=== PATIENT | male | born 1955 | race Caucasian/White ===

== ENCOUNTER → 2016-10-25 | Outpatient (REF) | payer BC | LOC: LAB 15:23 | PROVIDERS: ATTEND Family Medicine | DX: R97.20 Elevated prostate specific antigen [PSA] (principal); E78.2 Mixed hyperlipidemia | CPT/HCPCS: 84153 ==

== ENCOUNTER 2016-12-12 06:41 | Day surgery (SDC) | payer BC ==
[~2016-12-12] VITALS: Ht 170.2 cm; Wt 81.8 kg
[~2016-12-12 06:41] MED LIST: ACDPT PO; ASPI325T4 PO; HYDR-3754 PO; LACTATED RINGERS 1,000 ML IV SCH; SODIUM CHLORIDE FLUSH 3 ML SYR IV PRN; TRM50T PO
--- OUTSIDE RECORDS SUMMARY | 2016-12-12 06:44 | XMS REPORT | Continuity of Care Document ---
Author Author [facility] Address Unknown Phone Unavailable Allergies Active Description Code Type Severity Reaction Onset Reported/Identified Relationship to Patient Clinical Status Yes No Known Drug Allergies [id number] Drug Allergy Unknown N/ A 07/26/2013 Medications Problems Date Dx Coded Attending Type Code Diagnosis Diagnosed By 07/26/2013 HUNTER SMITH DO Ot 553.1 UMBILICAL HERNIA 07/26/2013 HUNTER SMITH DO Ot 789.05 ABDOMINAL PAIN, PERIUMBILIC 07/26/2013 HUNTER SMITH DO Ot 789.06 ABDOMINAL PAIN, EPIGASTRIC 07/22/2016 RICH DENT MD Ot G47.09 OTHER INSOMNIA 07/22/2016 RICH DENT MD Ot K42.9 UMBILICAL HERNIA WITHOUT OBSTRUCTION OR 07/22/2016 RICH DENT MD Ot R06.02 SHORTNESS OF BREATH 07/22/2016 RICH DENT MD Ot R07.89 OTHER CHEST PAIN 07/22/2016 RICH DENT MD Ot Z12.5 ENCOUNTER FOR SCREENING FOR MALIGNANT NE 08/11/2016 RICH DENT MD Ot G47.09 OTHER INSOMNIA 08/11/2016 RICH DENT MD Ot K42.9 UMBILICAL HERNIA WITHOUT OBSTRUCTION OR 08/11/2016 RICH DENT MD Ot R06.02 SHORTNESS OF BREATH 08/11/2016 RICH DENT MD Ot R07.89 OTHER CHEST PAIN 08/11/2016 RICH DENT MD Ot Z12.5 ENCOUNTER FOR SCREENING FOR MALIGNANT NE 10/03/2016 RICH DENT MD Ot G47.09 OTHER INSOMNIA 10/03/2016 RICH DENT MD Ot K42.9 UMBILICAL HERNIA WITHOUT OBSTRUCTION OR 10/03/2016 RICH DENT MD Ot R06.02 SHORTNESS OF BREATH 10/03/2016 RICH DENT MD Ot R07.89 OTHER CHEST PAIN 10/03/2016 RICH DENT MD Ot Z12.5 ENCOUNTER FOR SCREENING FOR MALIGNANT NE 10/25/2016 RICH DENT MD Ot G47.09 OTHER INSOMNIA 10/25/2016 RICH DENT MD Ot K42.9 UMBILICAL HERNIA WITHOUT OBSTRUCTION OR 10/25/2016 RICH DENT MD Ot R06.02 SHORTNESS OF BREATH 10/25/2016 RICH DENT MD Ot R07.89 OTHER CHEST PAIN 10/25/2016 RICH DENT MD Ot Z12.5 ENCOUNTER FOR SCREENING FOR MALIGNANT NE 10/28/2016 RICH DENT MD Ot E78.2 MIXED HYPERLIPIDEMIA 10/28/2016 RICH DENT MD Ot R97.20 ELEVATED PROSTATE SPECIFIC ANTIGEN [ PSA] 11/09/2016 RICH DENT MD Ot E78.2 MIXED HYPERLIPIDEMIA 11/09/2016 RICH DENT MD Ot R97.20 ELEVATED PROSTATE SPECIFIC ANTIGEN [ PSA] 12/08/2016 RICH DENT MD Ot G47.09 OTHER INSOMNIA 12/08/2016 RICH DENT MD Ot K42.9 UMBILICAL HERNIA WITHOUT OBSTRUCTION OR 12/08/2016 RICH DENT MD Ot R06.02 SHORTNESS OF BREATH 12/08/2016 RICH DENT MD Ot R07.89 OTHER CHEST PAIN 12/08/2016 RICH DENT MD Ot Z12.5 ENCOUNTER FOR SCREENING FOR MALIGNANT NE 12/08/2016 RICH DENT MD Ot E78.2 MIXED HYPERLIPIDEMIA 12/08/2016 RICH DENT MD Ot R97.20 ELEVATED PROSTATE SPECIFIC ANTIGEN [ PSA] Procedures Results Test Result Range Complete blood count (CBC) with automated white blood cell (WBC) differential - 07/20/16 12:10 Blood automated leukocyte count 7.53 4.0 -11.0 Erythrocytes 4.92 4.50-5.50 12.0-16.0;g/dL 14.9 13.5-17.0 Hematocrit 43.80 39.00-50.00 Automated erythrocyte mean corpuscular volume 89 80-100 Mean corpuscular hemoglobin (MCH) determination 30.3 26.0-34.0 Automated erythrocyte mean corpuscular hemoglobin concentration measurement ( mass/volume) 34.0 31.0-37.0 Erythrocyte distribution width 12.8 11.8 -15.6 Automated blood platelet count 351 150- 450 Automated blood platelet mean volume measurement 9.5 6.0-9.5 Automated neutrophil percentage 54 51- 67 Lymphocytes/100 leukocytes 29 20-46 Automated monocyte percentage 11 3-11 Eosinophil count auto 5 0-4 Automated basophil percentage 1 0-2 Automated blood neutrophil count 4.1 Blood lymphocytes count (number/volume) 2.2 Automated blood monocyte count 0.8 Blood absolute eosinophil count 0.4 Basophils 0.1 Comprehensive metabolic panel - 07/20/16 12:10 Sodium measurement 91 70-110 Carbon dioxide measurement 31 22-29 Serum or plasma anion gap 11.8 3-15 BLOOD UREA NITROGEN 16 7-18 CREATININE SERUM 1.05 0.8-1.5 Brucella species antibody panel (IgG, IgM) 15 10-20 Estimated glomerular filtration rate (GFR) 86.6 Estimated glomerular filtration rate (GFR) non- 71.6 OSMOLALITY,CALCULATED 273 280-300 CALCIUM 9.4 8.8-10.8 Calculated ionized calcium measurement 3.9 3.8-4.6 BILIRUBIN,TOTAL 0.6 0.1-1.0 Serum or plasma alkaline phosphatase measurement 63 38-126 ASPARTATE AMINO TRANSFERASE 28 15-37 ALANINE AMINOTRANSFERASE 48 30-65 Serum or plasma total protein measurement 7.7 6.4-8.5 Serum or plasma albumin measurement 4.0 3.4-5.0 Serum or plasma albumin/globulin mass ratio 1.081 1.1-1.8 THYROID STIMULATING HORMONE* - 07/20/16 12:10 THYROID STIMULATING HORMONE 1.33 0.46- 4.68 Prostate specific Ag - 07/20/16 12:10 Prostate specific Ag 4.9 0.0-4.0 LIPID PANEL - 07/20/16 12:10 Cholesterol 253 50-200 HDL Cholesterol 60 40-60 Triglycerides 213 10-150 LDL CHOLESTEROL 150 50-130 VLDL Cholesterol, calc 43 4.00-40.00 Cholesterol.total/Cholesterol.in HDL 4.2 0.0-5.0 UA CULTURE IF INDICATED* - 07/20/16 12:15 COLLECTION METHOD RANDOM VOIDED Color of urine by auto Yellow Urine appearance determination Clear Urine pH measurement by automated test strip 5.5 5.0 - 8.0 Specific gravity of urine by automated test strip 1.025 1.005-1.030 Urine protein measurement by test strip (mass/volume) Negative Negative Urine glucose detection by automated test strip Negative Negative Urine erythrocytes count by automated test strip (number/volume) Negative Negative Urine ketones detection by automated test strip Negative Negative Urine nitrite detection by test strip Negative Negative Urine total bilirubin detection by automated test strip Negative Negative Urine urobilinogen measurement by automated test strip (mass/volume) 0.2 0.2-1.0 Urine leukocyte esterase detection by dipstick Negative Negative Prostate specific Ag - 10/25/16 14:00 Prostate specific Ag 3.7 0.0-4.0 Encounters ACCT No. Visit Date/Time Discharge Status Pt. Type Provider Facility Loc./Unit Complaint [id number] 07/26/2013 18:51:00 2012 21:07:00 DIS Emergency [facility], HUNTER Quintero [facility] ED [id number] 12/12/2016 07:30:00 PEN Michelle THAYER MD, SIMI Salmeron [facility] ASC COLONOSCOPY [id number] 10/25/2016 15:23:00 ACT Outpatient SEAN CARDOZO MD , [facility] LAB LAB DROP OFF DR BURRIS [id number] 07/20/2016 11:31:00 ACT Outpatient SEAN CARDOZO MD , [facility] RAD RAD LAB
[2016-12-12 06:50] VITALS: BP 140/103
[2016-12-12] MEDS ORDERED: ALFENTANIL 500 MCG/ML (ALFENTA) 5 ML AMP IV ONE (07:13)
[2016-12-12] MEDS ORDERED: MIDAZOLAM 2 MG/2 ML (VERSED) VIAL ONE (07:13)
[2016-12-12] MEDS ORDERED: PROPOFOL 20 ML IV ONE (07:14)
[2016-12-12 07:57] VITALS: BP 114/61
[2016-12-12 08:15] VITALS: BP 133/80
--- NOTE | 2016-12-12 08:40 | OPERATIVE REPORT ---
DATE OF OPERATION: 12/12/2016 PRE-OPERATIVE DIAGNOSIS: 1. Screening colonoscopy. 2. Family history of colon cancer. POST-OPERATIVE DIAGNOSIS: 1. Colon and rectal polyps. 2. Sigmoid diverticulosis. OPERATIVE PROCEDURE: Total colonoscopy with endoscopic mucosal resections. SURGEON: James Leyva MD ANESTHESIA: Monitored anesthesia care FINDINGS: 1. The bowel prep was excellent. 2. A small polyp was noted at 45 cm in the sigmoid colon and another in the rectum. Both of these were removed using the saline-lift and cautery snare. 3. There were scattered diverticula seen in the sigmoid colon. 4. No inflammation or angiodysplasia were seen. INDICATION: The patient is a 61-year-old referred by Dr. Rojo for colonoscopy screening. The patient's father was diagnosed with colon cancer in his 60s. DESCRIPTION OF PROCEDURE: The patient was informed of the risks and benefits and agreed to proceed. He was placed in the left lateral decubitus position and administered IV sedation. When properly sedated a rectal exam was performed, which was normal. The lighted endoscope was passed into the rectum and advanced along the colon to the cecum. The ileocecal valve and the appendiceal orifice were easily seen. The scope was slowly brought back through the ascending, transverse, descending, and sigmoid colon. At 45 cm, the first polyp was noted, photographed and removed using an endoscopic mucosal resection. No other polyps were seen in the sigmoid colon, but there were diverticula noted. In the proximal rectum a smaller polyp was seen, photographed and removed using the same technique. Retroflexion revealed no other polyps in the rectum. The scope was removed completing the procedure. The patient tolerated the procedure without complications. Pathology is pending.
== END 2016-12-12 08:24 | disposition home or self-care (01) ==
LOC: ASC 06:41
PROVIDERS: ATTEND Surgery
DX: Z12.11 Encounter for screening for malignant neoplasm of colon (principal); D12.6 Benign neoplasm of colon, unspecified; K62.1 Rectal polyp; K57.30 Diverticulosis of large intestine without perforation or abscess without bleeding; Z80.0 Family history of malignant neoplasm of digestive organs
CPT/HCPCS: 45385; J2250; J7120

== ENCOUNTER → 2016-12-16 | Outpatient (REF) | payer BC ==
[~2016-12-16] MED LIST changes: -LACTATED RINGERS 1,000 ML IV SCH; -SODIUM CHLORIDE FLUSH 3 ML SYR IV PRN
== END ==
LOC: LAB 12:00
PROVIDERS: ATTEND Physician Assistant Surgical
DX: R68.82 Decreased libido (principal)
CPT/HCPCS: 84403

== ENCOUNTER → 2016-12-20 | Outpatient (CLI) | payer BC ==
[2016-12-20 16:57] LABS: BASOPHILS % (AUTO) 1 % (0-2); EOSINOPHILS # (AUTO) 0.3 10^3uL; EOSINOPHILS % (AUTO) 4 % (0-4); LYMPHOCYTES # (AUTO) 2.4 X10^3; MEAN CORPUSCULAR HEMOGLOBIN 30.5 PG (26.0-34.0); MEAN CORPUSCULAR HGB CONC 33.9 g/dL (31.0-37.0); MEAN CORPUSCULAR VOLUME 90 FL (80-100); MEAN PLATELET VOLUME 9.3 FL (6.0-9.5); MONOCYTES # (AUTO) 0.6 X10^3; MONOCYTES % (AUTO) 8 % (3-11); NEUTROPHILS # (AUTO) 4.2 X10^3; NEUTROPHILS % (AUTO) 55 % (51-67); PLATELET COUNT 326 10^3uL (150-450); WHITE BLOOD COUNT 7.53 10^3uL (4.0-11.0)
== END ==
LOC: LAB 16:47
PROVIDERS: ATTEND Family Medicine
DX: E29.1 Testicular hypofunction (principal); R68.82 Decreased libido
CPT/HCPCS: 36415; 84153; 85025

== ENCOUNTER 2017-01-04 15:28 | Emergency (ER) | payer BC ==
[~2017-01-04] VITALS: Ht 170.2 cm; Wt 85.4 kg
--- OUTSIDE RECORDS SUMMARY | 2017-01-04 15:33 | XMS REPORT | Continuity of Care Document ---
Author Author [facility] Address Unknown Phone Unavailable Care Team Providers Care Contract Modeler Name Role Phone RICH BURRIS MD PCP [phone] Insurance Providers Payer Name Policy Number Subscriber Name Relationship [facility] [id number] Tasia Blackwell Self / Same As Patient Advance Directives Directive Response Recorded Date/Time Advanced Directives No 12/12/16 6:50am Problems Active Problems Medical Problem Onset Date Status Abdominal pain 07/26/2013 Acute Encounter for colorectal cancer screening Unknown Acute Umbilical hernia 07/26/2013 Acute Medications Current Home Medications Medication Dose Units Route Directions Days/Qty Instructions Start Date Aspirin 325 Mg 4 Tab ORAL As Needed 07/26/13 Acetaminophen/Diphenhydramine 1 Ea 3 Tab ORAL Once 07/26/13 Hydrocodone Bit/Acetaminophen 1 Tab 1 Tab ORAL Q 4H Prn 10 Pain 07/26/13 Tramadol Hcl (Ultram) 50 Mg 1-2 Tab ORAL Every 6 Hours as needed for Pain 20 12/09/16 Social History Social History Problem Response Recorded Date/Time Onset Date Status Occupation or Former Occupation retired 12/12/2016 6:47am Query Response Start Date Stop Date Smoking Status Former smoker Hospital Discharge Instructions No hospital discharge instructions. Plan of Care Discharge Date 12/12/16 8:24am Prescriptions See Medication Section Functional Status No functional status results. Allergies, Adverse Reactions, Alerts Allergen Type Severity Reaction Status Last Updated Zolpidem Allergy Unknown Active 12/12/16 Immunizations No immunization records. Vital Signs Acute Vital Signs Vital Response Date/Time Temperature (Fahrenheit) 98.4 12/12/2016 8:15am Pulse 78 bpm 12/12/2016 8:15am Respirations 18 12/12/2016 8:15am Height 5 ft 7 in Weight 180 lb Body Mass Index 28.0 kg/m^2 Results No known relevant diagnostic tests, laboratory data and/or discharge summary. Procedures No known history of procedures. Encounters Encounter Location Arrival/Admit Date Discharge/Depart Date Attending Provider Registered [facility] 12/12/16 6:41am SIMI THAYER MD Recent Diagnosis Umbilical hernia
[2017-01-04] MEDS ORDERED: TRM50T PO (15:44)
[2017-01-04] MEDS ORDERED: PROMETHAZINE 25 MG/ML (PHENERGAN) 1 ML VIAL IM ONE (15:50)
[2017-01-04] MEDS ORDERED: MECLIZINE 25 MG (ANTIVERT) TABLET PO ONE (15:50)
[2017-01-04] MEDS ORDERED: ONDANSETRON 4 MG (ZOFRAN) ORAL DISSOLVE TAB PO ONE (15:50)
[2017-01-04 17:09] VITALS: BP 143/99
== END 2017-01-04 17:05 | disposition home or self-care (01) ==
LOC: ED 15:30
DX: H81.11 Benign paroxysmal vertigo, right ear (principal)
CPT/HCPCS: 96372; 99283; J2550; 99282

== ENCOUNTER → 2017-01-11 | Outpatient (CLI) | payer BC ==
--- NOTE | 2017-01-11 14:14 | Diagnostic Imaging Report ---
US-VENOUS STUDY EXT RT TECHNIQUE: Grayscale, color Doppler and spectral duplex imaging of the right upper extremity venous system was performed. INDICATION: Intermittent right arm numbness. COMPARISON: Arterial duplex evaluation performed concurrently. FINDINGS: The right internal jugular vein, brachiocephalic vein, subclavian vein and axillary veins are all widely patent in the neutral position. When the patient places his arm above his head, all of the evaluated venous structures remain patent. IMPRESSION: 1. No occlusion of the venous structures of the right upper extremity in neutral position or with arm abduction. Dictated by: Dictated on workstation # [id number]
--- NOTE | 2017-01-11 14:36 | Diagnostic Imaging Report ---
US RIGHT UPPER EXT ARTERIAL Technique: Grayscale, color Doppler and spectral duplex imaging of the right upper extremity arterial system was performed. Indication: Intermittent arm numbness. Evaluate for thoracic outlet syndrome. Comparison: None available. Findings: The right subclavian artery is widely patent without appreciable stenosis. The subclavian artery demonstrated normal triphasic waveforms with the arm in neutral position as well as with the patient's arm above his head. There are normal waveforms within the right brachiocephalic artery allowing for spectral broadening from large volume of blood within the right brachiocephalic artery. Right axillary artery maintains normal triphasic waveforms in neutral and arm abduction. Impression: 1. No changes in the blood flow within the right subclavian or axillary arteries to suggest thoracic outlet syndrome. Dictated by: Dictated on workstation # [id number]
== END ==
LOC: RAD 12:19
PROVIDERS: ATTEND Family Medicine
DX: R42 Dizziness and giddiness (principal); R20.0 Anesthesia of skin
CPT/HCPCS: 93931

== ENCOUNTER 2017-01-16 13:45 | Outpatient (RCR) | payer BC ==
--- NOTE | 2017-01-05 13:24 | PT/OT/ST INITIAL EVALUATION ---
Department of Health and Human Services Form Approved [facility] Care Financing Administration OMB No. [phone] PLAN OF CARE/ASSESSMENT FOR OUTPATIENT REHABILITATION (Complete for Initial Claims Only) 1. PATIENT'S NAME Xavi Grijalva 2. ACC # [id number] 3. HICN NA 4. PROVIDER NO. [id number] 5. TYPE: PT 6. PRIOR HOSPITALIZATION NA 7. PRIMARY DX Groin strain ICD-10 S76.211D 8. SECONDARY DX NA 9. ONSET DATE Approximately 4 weeks ago 10. REFERRAL DATE 12/23/2016 11. SOC. DATE 01/02/2017 12. TIME OF EVAL 9:09 am to 10:21 a.m. 12. RE[address]YS[address]IAN Dr. Jori Rojo 13. CHARGES/UNITS Evaluation 44882 2 units of therapeutic exercise, 28020 1 unit of functional training, 61365 14. G CODES Not applicable to this patient 15. PRIOR LEVEL OF FUNCTION; PERTINENT HISTORY (Prior therapy results, reason for referral.) S: Prior to therapy the patient consented to today's evaluation and treatment. The patient is a 61-year-old male referred to by Dr. Jori Rojo to address a right groin strain. Mechanism of injury: The patient notes approximately 3 to 4 weeks ago he was lifting railroad ties, but denies initial pain in the right groin at that time. He does report it was several weeks before he started noticing pain along the right medial groin area. Upon further discussion with this patient, he revealed he had a fall last month, falling on his right side after chasing an animal out of his yard. He hit the right side of his head and landed on his right side. Prior level of function: The patient is recently retired. 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 The patient does lift up to 40 to 60 pounds on a regular basis completing these volunteer tasks. Current level of function: The patient is limited in being able to get in and out of the car without pain and also has increased pain when sitting. Therapy History: The patient has not had any recent therapy for this issue. It should be noted he did see the chiropractor twice, but does not feel it has been a benefit at this time. Pain level: Current pain level is 5/10. Max pain level is greater than 5/10. Aggravating factors: The patient's primary pain complaint is constant localized right medial groin pain that is increased his breathing, sitting or getting in and out of the car. Relieving factors: The pain is relieved by loosening up his belt and hip abduction. Aggravating factors: Diagnostic tests: No diagnostic imaging has been completed, however, the patient reports Dr. Rojo has ruled out the possibility of a hernia. Past medical history: History of umbilical hernia. The patient has had increased falls recently secondary to disequilibrium, tremors, and a left ankle fracture in which 8 to 9 screws were placed. Current medications: The patient takes tramadol only at night and does take 2 Aleve a day. Activity level: Good. Personal health rating: Reported as good. Patient's Goal: The patient's goal for physical therapy is to be able to go to [place] in 2 weeks to visit family, as well as having decreased pain. 16. INITIAL ASSESSMENT/SAFETY PRECAUTIONS/MEDICAL COMPLICATIONS (Level of function at start of care. Be specific, use objective measures, list problems.) O: APPEARANCE, OBSERVATION AND GAIT: Observation of the patient's gait reveals right tibial external rotation with the right foot being in a toe-out position. In sitting, the patient also has right tibial rotation. Minimal heel-strike push off bilaterally with gait. PALPATION: The patient has tenderness to palpation of the right IT band. Hypomobility on the left side of the sacrum, and patient reported his right hand tingles with a PA to L1. This was not changed with change in head positioning, as the physical therapist would suspect the patient's neck or shoulder being the cause of these symptoms, but did not cause a change. SPECIAL TESTS: Negative FADIR, DAVON and hip scour test on the left, positive FADIR on the right for increased groin pain. Positive hip scour test on the right for increased hip pain and negative DAVON test. Assessment of the patient's leg length reveals right lower extremity is longer in comparison to the left. RANGE OF MOTION/FLEXIBILITY: Right knee flexion 126 degrees, left 126 degrees. Right hip flexion 100 degrees and painful, left 123 degrees. Hamstring length on the right 150 degrees, left 136 degrees with 180 being neutral assessed hip/knee 90/90 position STRENGTH: Right hip flexion 4/5 and painful, left 5/5. Hip abduction on the right 3+/5, left 4/5. Hip extension bilaterally 3+/5. Knee flexion on the right 4/5, left 4/5. Knee extension 5/5 on the right, left 4/5 with increased knee stiffness noted. TODAY'S TREATMENT: Today's treatment consisted of educating the patient and his , who was present with him during part of his evaluation on the findings of the evaluation and recommended treatment plan. The patient did voice being very nervous and anxious about his therapy session, but notes after completion of evaluation he is more comfortable with participating in therapy and does not have as much anxiety. The physical therapist initiated a lower extremity stretching program, as well as lower extremity nerve glides bilaterally secondary to the patient's radicular symptoms noted with palpation PA of L1. The patient was provided a written copy of his home exercise program. 17. INITIAL POC: (Specify procedures, modalities, short and termite control technician goals) A: The patient presents to physical therapy with a possible traumatic onset of right medial groin pain. He does have significant hamstring tightness bilaterally and limited hip range of motion, as well as proximal hip weakness. The patient does have abnormal neurological response with PA of lumbar spine and this will be reported to patient's primary care physician. PROGNOSIS: The patient does have a good prognosis, however, as he does note decreased anxiety about therapy sessions. His prognosis will also be improved with regular therapy attendance and compliance with his home exercise program and activity modification recommendations. OUTCOME ASSESSMENT: The patient scores a 70/80 on the Lower Extremity Functional Index. INFORMED CONSENT: The diagnosis, prognosis, treatment plan, risks and expected outcomes were discussed with this patient and his and he is agreeable to today's established plan of care. SHORT TERM GOALS X2 WEEKS: 1. The patient will report independent and compliant with his home exercise program. 2. The patient will improve hamstring length by a minimum of 10 degrees bilaterally to decrease strain on the posterior lower extremities, as well as the low back. 3. The patient will demonstrate right hip flexion to be within 10 degrees of the left to improve functional use of the right leg. JAIL GOALS X4 WEEKS: 1. The patient will have pain no greater than 2/10 in the right medial groin. 2. The patient will improve right lower extremity strength to be a minimum of 4+/5 in all planes to improve power with lifting activities that he needs for volunteer work. 3. The patient will demonstrate proper lifting mechanics up to 20 pounds from waist to floor with minimal to no pain. P: Plan to see this patient 3 times a week for 4 weeks to address right groin pain with subsequent loss of right hip flexion, impaired proximal hip strength, and significant lower extremity tightness. The treatment will include modalities as needed to decrease pain and improve muscle flexibility, manual therapy techniques will be utilized including myofascial release, joint mobilizations, soft tissue and deep tissue mobilization, as well as cross friction massage. Therapeutic exercise will be emphasized on regaining pain free right hip range of motion with progressive strengthening. Gait and neuromuscular reeducation will be provided as the patient tolerates, functional training will also be utilized emphasizing proper body mechanics with lifting tasks. The patient was provided a home exercise program and this will be progressed as needed. Thank you for the referral of this patient. 18. FREQUENCY 3 times per week 19. DURATION 4 weeks 20. FUNCTIONAL LEVEL (End of claim period) 21. PHYSICIAN SIGNATURE ? ON FILE OR ENTER HERE: 22. DATE: I certify the need for these services furnished under this plan of care and if for partial hospitalization. 23. CERTIFICATION FROM THROUGH [facility]-700
== END 2017-01-30 13:06 | disposition home or self-care (01) ==
LOC: PT 13:45
PROVIDERS: ATTEND Family Medicine
DX: S76.211D Strain of adductor muscle, fascia and tendon of right thigh, subsequent encounter (principal)